=== PATIENT | male | born 1975 | race Caucasian/White ===

== ENCOUNTER 2018-03-02 20:32 | Emergency (ER) | payer BC, OTHER ==
[~2018-03-02] VITALS: Ht 185.4 cm; Wt 107.5 kg
[~2018-03-02 20:32] MED LIST: ACET-1256 PO; NAPR1TAB9 PO
[2018-03-02 20:35] VITALS: BP 168/110; TEMP 36.7; Ht 185.4 cm; Wt 107.5 kg
[2018-03-02] MEDS ORDERED: OXYC-57 PO (21:16)
[2018-03-02] MEDS ORDERED: VALA1TAB2 PO (21:16)
--- NOTE | 2018-03-02 21:17 | EMERGENCY ROOM VISIT NOTE ---
ED Visit Note First contact with patient: 20:40 CHIEF COMPLAINT: Right facial rash 2 days HISTORY OF PRESENT ILLNESS: Patient is an otherwise healthy 42-year-old male who presents the emergency department for evaluation of a right-sided facial rash 2 days. He states his symptoms started 2 days ago with a small, red, raised area medial to the right eye. He states it was slightly sore, and he noticed some mild right sided facial discomfort. As the day has gone on today, he has developed several other similar red, raised bumps, in the right eyebrow, and several on his right cheek and near his right upper lip. He states that they feel a little bit itchy. He denies any eye pain, drainage, discharge or changes in vision. He was seen at [facility], and they were suspicious for shingles and sent him to the emergency department due to the location on the face near the eye. He does not have any lesions on his nose, specifically, no Dwyer sign. He denies any other similar lesions elsewhere. He was cutting up and down the tree a couple of days ago, but did not typically notes that there were any type of poison tapan plants and denies any other pruritic lesions. He denies any headache, fever or chills. He rates his pain a 0/10. Denies new exposure to any potential allergens such as new medications, clothes , detergents, cosmetic products, or foods. REVIEW OF SYSTEMS: Review of systems as per HPI. All other systems reviewed were negative. 10 systems reviewed. PMH: Electronic medical records are reviewed and summarized as above/below. See Problem List. SOCIAL HISTORY: Patient lives at home with his family. Employed. Non-smoker. PHYSICAL EXAM: Vital Signs: Reviewed Nurse's notes. CONSTITUTIONAL: Patient is a pleasant, well-appearing 31-year-old male who is awake and alert and in no acute distress. HEENT: Normocephalic, atraumatic. Pupils equal, round, reactive to light and accommodation. EOMs intact without nystagmus. Sclera are anicteric. Tympanic membranes intact, with normal landmarks. External canals are clear. Oral and nasopharynx are clear. Mucous membranes are moist. INTEGUMENTARY: The patient has several erythematous, raised lesions noted on the right side of the face, in the eyebrow, near the medial canthus of the right eye, and on his cheek and his right upper lip. No overt vesicles are noted. There is no fluctuance to indicate abscess or overt cellulitic changes. EMERGENCY DEPARTMENT COURSE: The patient was seen and assessed as above by myself and Dr. Nieto. His documentation from [facility] was reviewed. His eye was stained with fluorescein there and there were no corneal lesions noted. The etiology of his rash is not entirely clear at this time, certainly shingles was entertained, given the unilateral distribution of the presentation of the lesions. Differential diagnoses also entertained included urticaria, contact dermatitis, among others. Given the suspicion for shingles, the patient will be placed on valacyclovir. He was given his first dose here in the emergency department. It is possible that the rash is not classic due to his early presentation. He does not appear to have any corneal involvement at this time. He was given a prescription for Percocet for pain as needed, and was advised to return to the emergency department immediately for any eye pain injection or changes in vision. Patient was comfortable with this, and was discharged home in good condition. Problem List Medical Problems: (1) Epididymitis Status: Resolved (2) Orchitis Status: Resolved Surgical Problems: (1) History of hernia repair Status: Resolved Current/Historical Medications Scheduled Acetaminophen (Tylenol), 1,000 MG PO PRN UD Naproxen (Aleve), 220 MG PO PRN UD Valacyclovir Hcl (Valtrex), 1,000 MG PO TID Scheduled PRN Oxycodone/Acetaminophen 5MG/325MG (Percocet 5MG/325MG), 1-2 TABS PO Q4 PRN for Pain Allergies Uncoded Allergies: PCN (Allergy, Unknown, 12/12/02) Vital Signs Date Time Temp Pulse Resp B/P (MAP) Pulse Ox O2 Delivery O2 Flow Rate FiO2 03/02/18 21:29 90 95 03/02/18 20:35 36.7 101 18 168/110 98 Room Air Medications Administered Medications (Trade) Dose Ordered Sig/Millie Route Start Time Stop Time Status Last Admin Dose Admin Valacyclovir HCl (Valtrex Tab) 1,000 mg NOW ONCE PO 03/02/18 21:15 03/02/18 21:16 DC 03/02/18 21:26 1,000 MG Departure Information Impression Primary Impression: Facial rash Prescriptions Oxycodone/Acetaminophen 5MG/325MG (PERCOCET 5MG/325MG) Tab 1-2 TABS PO Q4 Y for Pain, #25 TAB For Initial Treatment Prov: Jillian Hunter PA 03/02/18 Valacyclovir Hcl (VALTREX) 1 Gm Tab 1000 MG PO TID for 7 Days, #21 TAB Prov: Jillian Hunter PA 03/02/18 Referrals No Doctor, Assigned (PCP) Patient Instructions [facility] Additional Instructions Valacyclovir 1000 m tablet 3 times daily for 7 days. Ibuprofen(Motrin, Advil) may be used for fever or pain. Use 600mg every six hours as needed. Take with food. Avoid using more than 2400mg in a 24 hour period. Do not use 2400mg per day for more than three consecutive days without physician direction. Prolonged inappropriate use can lead to stomach upset or ulcers. (AND/OR) Acetaminophen(Tylenol) may be used for fever or pain. Use 1000mg every six hours as needed. Avoid using more than 3000mg in a 24 hour period. Percocet 5/325 mg: Take 1-2 pills every four hours for breakthrough pain. Avoid alcohol, operating machinery or dangerous equipment, working on ladders or roofs, DRIVING, or situations where being under the influence may be dangerous. It is recommended to use an pytv-clp-kadtdgm stool softener such as Colace, 100mg twice daily while taking this medication to avoid constipation. Return to the emergency department for worsening pain, redness or swelling, eye pain or changes in vision or any other concerns.
[2018-03-02 21:29] VITALS: PULSE 90; O2SAT 95
== END 2018-03-02 21:30 | disposition home or self-care (01) ==
LOC: C.EDB 20:33 → C.EDD 21:30
DX: R21 Rash and other nonspecific skin eruption (principal)

== ENCOUNTER 2018-03-04 11:16 | Emergency (ER) | payer OTHER ==
[~2018-03-04] VITALS: Ht 185.4 cm; Wt 107.1 kg
[~2018-03-04 11:16] MED LIST changes: +OXYC-57 PO; +VALA1TAB2 PO
[2018-03-04 11:28] VITALS: TEMP 36.9; Ht 185.4 cm; Wt 107.1 kg
[2018-03-04] MEDS ORDERED: PROPARACAINE HCL 0.5% OP SOLN 15 ML BTL OP STA (11:54)
[2018-03-04] MEDS ORDERED: CEFTRIAXONE SOD 350MG/ML 1 GM VIAL IM ONE (12:30)
[2018-03-04] MEDS ORDERED: DEXAMETHASONE **PF** INJ 10 MG/ML VIAL IM ONE (12:30)
[2018-03-04] MEDS ORDERED: PRED20TA2 PO (12:40)
[2018-03-04] MEDS ORDERED: CEPH500C PO (12:40)
[2018-03-04 13:12] VITALS: BP 157/105; PULSE 93; O2SAT 97
--- NOTE | 2018-03-04 14:14 | EMERGENCY ROOM VISIT NOTE ---
History First contact with patient: 11:53 Chief Complaint: SKIN PROBLEM Stated Complaint: SHINGLES,SORE SWOLLEN FACE History of Present Illness The patient is a 42 year old male who presents to the Emergency Room with complaints of progressively worsening right facial redness and swelling. The patient reports that he was here on Monday and diagnosed with possible herpes zoster. He was provided a prescription for Valtrex, which the patient has been taking as prescribed. The patient reports that he now has worsening redness and swelling. He denies any blurred vision or pain with movement of the eyes. He denies any sinus congestion, headache or runny nose. He denies any fevers or chills, and denies any pain. Review of Systems 10 system review was performed and was negative except for pertinent positives and negatives as indicated in history of present illness Past Medical/Surgical History Medical Problems: (1) Epididymitis (2) No Known Active Medical Problems (3) Orchitis Surgical Problems: (1) History of hernia repair Family History No significant family history Social History Smoking Status: Never Smoker Marital Status: Housing Status: lives with family Occupation Status: employed Current/Historical Medications Scheduled Acetaminophen (Tylenol), 1,000 MG PO PRN UD Cephalexin Monohydrate (Keflex), 500 MG PO QID Naproxen (Aleve), 220 MG PO PRN UD Prednisone (Prednisone Tab), 0 PO DAILY Valacyclovir Hcl (Valtrex), 1,000 MG PO TID Scheduled PRN Oxycodone/Acetaminophen 5MG/325MG (Percocet 5MG/325MG), 1-2 TABS PO Q4 PRN for Pain Physical Exam Vital Signs Date Time Temp Pulse Resp B/P (MAP) Pulse Ox O2 Delivery O2 Flow Rate FiO2 03/04/18 13:12 93 18 157/105 97 03/04/18 11:28 36.9 95 18 153/96 97 Room Air Right Eye Acuity: 20/15 Left Eye Acuity: 20/30 Physical Exam CONSTITUTIONAL: Healthy and well nourished. Alert and oriented X 3 with positive affect. Patient does not appear in any acute distress. HEENT: Patient has notable erythema and edema of the right upper cheek, inferior eye region and up into the medial canthal region. Pupils equal, round and reactive. No conjunctival injection, scleral icterus or drainage from the eye. EOMs are intact without signs of entrapment or discomfort. Nares and ears are clear. It is noted that there is no vesicles or pustules noted, although he does have what appears to be a small open wound near the medial canthal region that is tender to palpation. There are no rashes to the ear or scalp. No facial droop. NECK: Full active range of motion without discomfort. LYMPHATICS: No preauricular, submental, submandibular or cervical chain adenopathy. RESPIRATORY: Clear to auscultation bilaterally with no wheezing, crackles, rhonchi or stridor. CARDIOVASCULAR: Regular rate and rhythm with no murmurs, rubs or gallops. INTEGUMENTARY: No rash or other significant dermatologic conditions noted. NEUROLOGIC: No focal neurologic deficits noted. Facial sensations are intact. Medical Decision & Procedures Medications Administered Medications (Trade) Dose Ordered Sig/Millie Route Start Time Stop Time Status Last Admin Dose Admin Dexamethasone Sodium Phosphate (Dexamethasone Inj Pf) 10 mg NOW ONCE IM 03/04/18 12:30 03/04/18 12:32 DC 03/04/18 12:59 10 MG Ceftriaxone Sodium (Rocephin Im) 1,000 mg NOW ONCE IM 03/04/18 12:30 03/04/18 12:32 DC 03/04/18 12:59 1,000 MG ED Course Patient history and physical exam were performed. Nurse's notes were reviewed. Vital signs were reviewed and were normal. I also reviewed documentation from the patient's ED visit 2 days ago. Slit-lamp exam was performed at that time and was normal. I elected to repeat the slit-lamp exam again today which continues to remain normal without any evidence for dendritic lesions or other concerning lesions within the eye. Patient has no discomfort with extraocular movements, therefore I do not suspect periorbital cellulitis. In addition to the possibility of herpes zoster, I also explained the possibility of cellulitis and contact dermatitis as the patient has been outside [facility]. The patient was administered IM Decadron and Rocephin, and will be provided prescriptions for Keflex and a prednisone taper. The patient will contact ophthalmology tomorrow for recheck. The patient was also encouraged to follow- up with his PCP within the next 2-3 days as well for recheck. He was instructed to return to the emergency department for any progressively worsening swelling, redness, pain, fever, headache, pain with movement of the eye, blurred vision or other concerning symptoms. Patient was happy with plan of care, voiced understanding of all discharge instructions, and denied any pain at the time of discharge. Medical Decision See previous section Medication Reconcilliation Current Medication List: was personally reviewed by me Blood Pressure Screening Patient's blood pressure: Normal blood pressure Impression Primary Impression: Right facial cellulitis Departure Information Dispostion Home / Self-Care Prescriptions Prednisone (Prednisone Tab) 20 Mg Tab 0 PO DAILY, #18 TAB 3 DAILY FOR 3 DAYS, THEN 2 DAILY FOR 3 DAYS, THEN 1 DAILY FOR 3 DAYS. Prov: Venkata Matos PA 03/04/18 Cephalexin Monohydrate (Keflex) 500 Mg Cap 500 MG PO QID for 7 Days, #28 CAP Prov: Venkata Matos PA 03/04/18 Forms HOME CARE DOCUMENTATION FORM, IMPORTANT VISIT INFORMATION Patient Instructions My [facility] Additional Instructions Complete all Keflex antibiotics as prescribed, next dose in 4-6 hours. Take prednisone as prescribed, next dose tomorrow morning. Intermittently apply a cool compress to the face. Ibuprofen 800 mg and/or Tylenol 1000 mg every 8 hours. You may also alternate these medications for more effective pain relief: Ibuprofen --4 HRS--> Tylenol --4 HRS--> ibuprofen --4 HRS--> Tylenol .... Suggest follow-up with an housecleaner floor for recheck. Follow-up with your family doctor for recheck in 2-3 days. Return to the emergency department for any worsening condition, developing headache, blurred vision, pain with movement of the eye or fever.
== END 2018-03-04 13:13 | disposition home or self-care (01) ==
LOC: C.EDB 11:18
DX: L03.211 Cellulitis of face (principal)

== ENCOUNTER → 2018-06-15 | Outpatient (CLI) | payer OTHER ==
[~2018-06-15] MED LIST changes: +PRED20TA2 PO; -VALA1TAB2 PO
--- NOTE | 2018-06-15 11:13 | DIAGNOSTIC IMAGING REPORT ---
CHEST 2 VIEWS ROUTINE CLINICAL HISTORY: Z20.1 Contact with and (suspected) exposure to tuberculosis COMPARISON STUDY: 03/13/2012 FINDINGS: The bones soft tissues and hemidiaphragms are normal. The cardiomediastinal silhouette is normal. The lungs are clear. The pulmonary vasculature is normal. IMPRESSION: Negative chest. The above report was generated using voice recognition software. It may contain grammatical, syntax or spelling errors. Electronically signed by: Osiel Spivey M.D. 06/15/2018 11:12 AM Dictated Date/Time: 06/15/2018 11:10 AM
== END | disposition home or self-care (01) ==
LOC: C.RAD1850 11:00
PROVIDERS: ATTEND Physician Assistant
DX: Z20.1 Contact with and (suspected) exposure to tuberculosis (principal)